=== PATIENT | female | born 1995 | race Hispanic/Latino ===

== ENCOUNTER 2018-06-06 19:28 | Emergency (ER) | payer OTHER ==
[2018-06-06 19:39] VITALS: BP 143/96; PULSE 121; RESP 18; TEMP 98.1; O2SAT 100
[2018-06-06] MEDS ORDERED: Lidocaine 2% MPF (5 ml) Inj ONE (19:46)
[2018-06-06] MEDS ORDERED: Bacitracin 500 Units/gm Oint Foilpak UD ONE (22:19)
--- NOTE | 2018-06-06 22:29 | C.PDOC ---
History Of Present Illness 22 year old female presents to the ED for evaluation of a laceration to her left wrist. Patient reports she was walking down the stairs when she tripped while she was carrying a bottle. Patient landed on the bottle sustaining a laceration to her left wrist with some active bleeding. Patient denies other injury, LOC, headache, weakness, numbness. Time Seen by Provider: 06/06/18 20:06 Chief Complaint (Nursing): Abnormal Skin Integrity History Per: Patient History/Exam Limitations: no limitations Onset/Duration Of Symptoms: Hrs Current Symptoms Are (Timing): Still Present Location Of Injury: Left: Hand Quality Of Symptoms: Painful, Draining Recent travel outside of the [place]: No Additional History Per: Patient Past Medical History Reviewed: Historical Data, Nursing Documentation, Vital Signs Vital Signs: Last Vital Signs Temp 98.1 F 06/06/18 19:38 Pulse 121 H 06/06/18 19:38 Resp 18 06/06/18 19:38 BP 143/96 H 06/06/18 19:38 Pulse Ox 100 06/06/18 23:46 - Medical History PMH: No Chronic Diseases Surgical History: No Surg Hx Family History: States: Unknown Family Hx - Social History Hx Alcohol Use: No Hx Substance Use: No Review Of Systems Constitutional: Negative for: Fever, Chills Cardiovascular: Negative for: Chest Pain Respiratory: Negative for: Shortness of Breath Gastrointestinal: Negative for: Nausea, Vomiting Musculoskeletal: Positive for: Hand Pain Skin: Positive for: Other (laceration) Neurological: Negative for: Weakness, Numbness Physical Exam - Physical Exam Appears: Non-toxic, No Acute Distress Skin: Normal Color, Warm, Dry Head: Atraumatic, Normacephalic Eye(s): bilateral: Normal Inspection Neck: Normal ROM, Supple Extremity: Normal ROM, No Tenderness, Capillary Refill (< 2 second), No Swelling , Other (3 cm laceration to anterior aspect of left wrist, active bleeding noted. ) Pulses: Left Radial: Normal, Right Radial: Normal Neurological/Psych: Oriented x3, Normal Speech, Normal Cognition, Normal Motor, Normal Sensation Gait: Steady ED Course And Treatment O2 Sat by Pulse Oximetry: 100 (ON RA) Pulse Ox Interpretation: Normal - Other Rad Left wrist X-Ray X-Ray: Interpreted by Me, Viewed By Me Interpretation: NO FB seen Progress Note: Plan: - Tylenol 650 mg PO. - Ultram 50 mg PO. - Left wrist X- Ray. While attempting laceration repair patient became anxious, patient was given ativan PO. Patient started having a panic attack while in the ED. Patient was able to tolerate the laceration repair and was advised on wound care and follow up with PMD. Laceration - Laceration Repair left wrist Wound Length (In cm): 3 Description Of Wound: Stellate Wound Cleansed With: Betadine, Sterile Saline Anesthesia: Lidocaine 1% Wound Examination: Irrigated With Saline, No FB With Wound Exploration, No Tendon Injury With Wound Exploration Wound Closure: Steri Strips, Suture (x5 ) Suture Technique And Material Used: Nylon (4-o) Wound Complexity: Simple Disposition Counseled Patient/Family Regarding: Diagnosis, Need For Followup, Rx Given - Disposition Referrals: [facility] [Outside] Disposition: HOME/ ROUTINE Disposition Time: 22:25 Condition: STABLE Additional Instructions: Keep wound clean and dry apply antibacterial ointment wound check with PMD in 2 days Suture removal in 10-14 days Return to ER if worse Instructions: Laceration Repair With Stitches (DC) Forms: [employer] (Chilean), Work Excuse - Clinical Impression Clinical Impression: Laceration of left wrist - PA / [employer] / Resident Statement MD/DO has reviewed & agrees with the documentation as recorded. - Scribe Statement The provider has reviewed the documentation as recorded by the Scribe Chente Moore All medical record entries made by the Scribe were at my direction and personally dictated by me. I have reviewed the chart and agree that the record accurately reflects my personal performance of the history, physical exam, medical decision making, and the department course for this patient. I have also personally directed, reviewed, and agree with the discharge instructions and disposition.
--- NOTE | 2018-06-07 07:32 | RAD ---
Date of service: 06/06/2018 PROCEDURE: Left Wrist Radiographs. HISTORY: LACERATION, POSS FOREIGN BODY COMPARISON: None. FINDINGS: BONES: Normal. No fracture. JOINTS: Normal. No dislocation. SOFT TISSUES: Normal. OTHER FINDINGS: None. IMPRESSION: Normal left wrist radiographs. No radiopaque foreign body. Bandaging over volar aspect of wrist
== END 2018-06-06 22:30 | disposition home or self-care (01) ==
LOC: C.ER 19:28
DX: S61.512A Laceration without foreign body of left wrist, initial encounter (principal); W10.9XXA Fall (on) (from) unspecified stairs and steps, initial encounter; Y92.9 Unspecified place or not applicable